=== PATIENT | female | born 1950 | race Two or more races ===

== ENCOUNTER 2019-03-11 07:45 | Emergency (ER) | payer OTHER ==
[2019-03-11 08:10] VITALS: BP 144/81; PULSE 84; TEMP 97.8; BMI 38.9
--- NOTE | 2019-03-11 08:35 | PDOC ---
History of Present Illness - General Chief Complaint: Pain Stated Complaint: RT LEG PAIN Time Seen by Provider: 03/11/19 08:20 History Source: Patient Exam Limitations: No Limitations - History of Present Illness Initial Comments: 03/11/19 08:30 states Pain to right upper aspect of lower leg - lateral aspect. States had no trauma, no known injury BUT has started exercise program with treadmill anbd walking this past 2 weeks. No CP/Palp/SOB/ fevers/ no Hx of DVT 03/11/19 08:31 Occurred: reports: yesterday Severity: reports: mild Pain Location: reports: lower extremity (right leg ) Modifying Factors: improves with: None Loss of Consciousness: no loss of consciousness Past History - Travel Traveled outside of the country in the last 30 days: No Close contact w/someone who was outside of country & ill: No - Past Medical History Allergies/Adverse Reactions: Allergies Allergy/AdvReac Type Severity Reaction Status Date / Time No Known Allergies Allergy Verified 03/11/19 08:02 Home Medications: Ambulatory Orders Glipizide [Glucotrol -] 5 mg PO BID 03/11/19 Naproxen [Naprosyn -] 500 mg PO BID #30 tablet 03/11/19 metFORMIN HCL [Metformin ER Gastric] 1,000 mg PO BID 03/11/19 COPD: No Diabetes: Yes - Suicide/Smoking/Psychosocial Hx Smoking History: Never smoked Review of Systems - Review of Systems Able to Perform ROS?: Yes Is the patient limited Swedish proficient: Yes Constitutional: Yes: See HPI. No: Symptoms Reported, Fever, Malaise HEENTM: Yes: See HPI. No: Symptoms Reported Respiratory: Yes: See HPI. No: Symptoms reported, Cough, Shortness of Breath Cardiac (ROS): No: Symptoms Reported Musculoskeletal: Yes: Symptoms Reported, See HPI, Muscle Pain (denies true Knee pain / Right hip replaced 3 years ago. ). No: Joint Swelling All Other Systems: Reviewed and Negative *Physical Exam - Vital Signs Last Vital Signs Temp Pulse Resp BP Pulse Ox 97.8 F 84 20 144/81 99 03/11/19 08:00 03/11/19 08:00 03/11/19 08:00 03/11/19 08:00 03/11/19 08:00 - Physical Exam General Appearance: Yes: Nourished, Appropriately Dressed, Mild Distress HEENT: positive: KAI, Normal ENT Inspection Neck: negative: Tender Respiratory/Chest: positive: Normal Breath Sounds Gastrointestinal/Abdominal: positive: Soft Musculoskeletal: positive: Normal Inspection (morbid obese- no swelling to calf / redness / cording . Able to flex and extend ), Other (walks with limp- using cane. ). negative: CVA Tenderness, Vertebral Tenderness Extremity: positive: Normal Capillary Refill, Normal Inspection, Normal Range of Motion (FROM to ankle, no reproduced pain to lateral or medial aspect of knee., NV intact to foot. ) Integumentary: positive: Normal Color, Warm Neurologic: positive: hood fitter II-XII NML intact, Fully Oriented, Alert, Normal Mood/ Affect, Normal Response, Motor Strength 5 Progress Note - Progress Note Progress Note: muscle strain to right lower leg/ exercise change. CHIQUI/ NSAIDS / Ortho F/U *DC/Admit/Observation/Transfer Diagnosis at time of Disposition: Muscle strain, lower leg Qualifiers: Encounter type: initial encounter Laterality: right Qualified Code(s): S86.911A - Strain of unspecified muscle(s) and tendon(s) at lower leg level, right leg, initial encounter - Discharge Dispostion Disposition: HOME Condition at time of disposition: Stable - Prescriptions Prescriptions: Naproxen [Naprosyn -] 500 mg PO BID #30 tablet - Referrals Referrals: Dae Godoy MD [Staff Physician] - Dahiana Aguilar MD [Primary Care Provider] - - Patient Instructions Printed Discharge Instructions: DI for Leg Pain Additional Instructions: Rest, Elevate leg this weekend May use CHIQUI WRAP to provide support and compression to leg as needed Naprosyn 500mg tab every 12 Hours for pain and swelling Call and make appt with ORTHOPEDIST for evaluation next week - Post Discharge Activity
== END 2019-03-11 08:40 | disposition home or self-care (01) ==
LOC: JER 07:45 → JERFT 07:45
DX: S86.811A Strain of other muscle(s) and tendon(s) at lower leg level, right leg, initial encounter (principal); X50.9XXA Other and unspecified overexertion or strenuous movements or postures, initial encounter; Y93.A1 Activity, exercise machines primarily for cardiorespiratory conditioning; Y92.89 Other specified places as the place of occurrence of the external cause; Y99.8 Other external cause status
CPT/HCPCS: 99281-25

== ENCOUNTER 2021-11-02 16:30 | Emergency (ER) | payer OTHER ==
[2021-11-02] MEDS ORDERED: SODIUM CHLORIDE 0.9% 500 ML INFUS.BAG IV ONE ×2 (16:56→16:57)
[2021-11-02] MEDS ORDERED: ACETAMINOPHEN 1000 MG/100 ML BAG IVPB ONE (16:57)
[2021-11-02] MEDS ORDERED: PIPERACILLIN/TAZOB 4.5 GM 4.5 GM in DEXTROSE 5%-WATER 100 ML IVPB ONE (16:57)
[2021-11-02] MEDS ORDERED: VANCOMYCIN 1 GM in D5W (PRE-DOCKED) 1,000 MG/250 ML IVPB ONE (16:57)
[2021-11-02 17:17] VITALS: TEMP 101.7; BMI 36.1
[2021-11-02] MEDS ORDERED: ASPIRIN 81 MG CHEWABLE TABLETS PO ONE (17:24)
[2021-11-02] MEDS ORDERED: PIPERACILLIN/TAZOB 4.5 GM 4.5 GM/100 ML BAG IVPB ONE (17:26)
[2021-11-02] MEDS ORDERED: ACETAMINOPHEN INJECTION 100 ML IVPB ONE (17:26)
[2021-11-02 17:32] LABS: BASO % 0.2 % (0-2.0); HEMATOCRIT 38.7 % (32.4-45.2); HEMOGLOBIN 12.8 GM/dL (10.7-15.3); LYMPH % 4.6 % (8-40); MCH 26.3 pg (25.7-33.7); MEAN CELL VOLUME 79.6 fl (80-96); MEAN PLT VOLUME 7.3 fl (7.5-11.1); MONO % 5.9 % (3.8-10.2); NEUT % 89.3 % (42.8-82.8); PLATELET COUNT 290 10^3/uL (134-434); RBC 4.86 M/mm3 (3.60-5.2); RDW 15.4 % (11.6-15.6)
[2021-11-02 17:37] LABS: EPI CELLS >36 /uL (0-25.1); HYALINE CASTS 61 /uL (0-3.1); PH,URINE 5.5 (5.0-8.0); URINE APPEARANCE TURBID; URINE BACTERIA 8820 /uL (0-1359); URINE BILIRUBIN NEGATIVE (NEGATIVE); URINE COLOR YELLOW; URINE GLUCOSE (UA) 2+ (NEGATIVE); URINE KETONE TRACE (NEGATIVE); URINE LEUK ESTERASE 3+ (NEGATIVE); URINE NITRITE POSITIVE (NEGATIVE); URINE PROTEIN 3+ (NEGATIVE); URINE RBC 1349 /uL (0-23.9); URINE UROBILINOGEN 0.2 mg/dL (0.2-1.0); URINE WBC 25840 /uL (0-25.8)
[2021-11-02 17:39] LABS: INR 1.36 (0.83-1.09); PROTHROMBIN TIME (PATIENT) 15.7 SEC (9.7-13.0)
[2021-11-02] MEDS ORDERED: ASPIRIN 81 MG CHEWABLE TABLETS ONE (17:45)
[2021-11-02] MEDS ORDERED: PIPERACILLIN/TAZOB 3.375 GM 3.375 GM in DEXTROSE 5%-WATER - 50 ML IVPB ONE (17:52)
[2021-11-02 18:01] LABS: ALBUMIN 3.1 g/dl (3.4-5.0); BLOOD UREA NITROGEN 20.5 mg/dL (7-18); CALCIUM 9.8 mg/dL (8.5-10.1); MAGNESIUM 1.3 mg/dL (1.8-2.4)
[2021-11-02 18:03] LABS: CREATININE 1.5 mg/dL (0.55-1.3)
[2021-11-02 18:05] LABS: BILIRUBIN,TOTAL 0.4 mg/dL (0.2-1); TOT PROT 7.6 g/dl (6.4-8.2)
[2021-11-02 18:17] LABS: LACTIC ACID 2.4 mmol/L (0.4-2.0)
[2021-11-02] MEDS ORDERED: HEPARIN NA (PORCINE) 5,000 UNITS/ML 1ML VIAL IVPUSH ONE (18:20)
[2021-11-02] MEDS ORDERED: HEPARIN NA (PORCINE) 5,000 UNITS/ML 1ML VIAL IVPUSH PRN ×2 (18:20)
[2021-11-02] MEDS ORDERED: HEPARIN INFUSION - 25,000 UNITS/500 ML INFUS.BAG IVPB ONE (18:26)
[2021-11-02] MEDS ORDERED: HEPARIN NA (PORCINE) 5,000 UNITS/ML 1ML VIAL ONE (18:26)
[2021-11-02 18:52] VITALS: BP 143/70; PULSE 117
[2021-11-02] MEDS ORDERED: HEPARIN - 25,000 UNIT in SODIUM CHLORIDE 495 ML IV SCH (19:00)
== END 2021-11-02 18:52 | disposition short-term general hospital (02) ==
LOC: JER 16:30
PROC: 3E033GC Introduction of Other Therapeutic Substance into Peripheral Vein, Percutaneous Approach (ICD-10-PCS; principal; 2021-11-02)
DX: A41.9 Sepsis, unspecified organism (principal); I21.3 ST elevation (STEMI) myocardial infarction of unspecified site
CPT/HCPCS: 36415; 71045-TC-FY; 80053; 81003; 82010; 82550; 82553; 82962; 83605; 83735; 84484; 85025; 85610; 85730; 86850; 86900; 86901; 87040; 87086; 87186; 93005; 93010; 99291; C9803; J1644; U0003; U0005